=== PATIENT | male | born 1985 | race American Indian/Alaskan Native ===

== ENCOUNTER 2020-05-23 15:11 | Emergency (ER) | payer OTHER ==
[~2020-05-23] VITALS: Ht 185.4 cm; Wt 93.2 kg
--- NOTE | 2020-05-23 16:20 | REP ---
INDICATION: right testicular swelling s/p vasectomy. COMPARISON: None. TECHNIQUE: Real-time sonographic evaluation of scrotum and contents performed. FINDINGS: The testicles are all in size and echotexture, right testicle measuring 4.4 x 2.2 x 2.8 cm and left testicle 3.9 x 2.5 x 2.8 cm. A punctate calcification is seen in the upper right testicle. There is no testicular mass or torsion, blood flow is seen in each testicle with duplex Doppler evaluation. Two tiny cysts are seen in the head of the right epididymis measuring about 2 mm in diameter. There is a 2 mm cyst in the head of the left epididymis. No hydrocele is seen bilaterally. IMPRESSION: Essentially negative scrotal ultrasound as discussed above. <Electronically signed by Brian Melgar > 05/23/20 [id number]
[2020-05-23] MEDS ORDERED: NAPR-837 PO (16:58)
[2020-05-23 17:17] VITALS: BP 135/68
== END 2020-05-23 17:19 | disposition home or self-care (01) ==
LOC: M ED 15:11
DX: N50.3 Cyst of epididymis (principal); R10.30 Lower abdominal pain, unspecified; Z98.890 Other specified postprocedural states; Z98.52 Vasectomy status; F17.200 Nicotine dependence, unspecified, uncomplicated

== ENCOUNTER 2020-07-19 11:38 | Emergency (ER) | payer OTHER ==
[~2020-07-19] VITALS: Ht 182.9 cm; Wt 98.1 kg
[~2020-07-19 11:38] MED LIST: NAPR-837 PO
[2020-07-19] MEDS ORDERED: NS 1,000 ML IV SCH ×2 (11:55→12:35)
--- NOTE | 2020-07-19 12:11 | REP ---
INDICATION: trauma. COMPARISON: None. TECHNIQUE: Five views of the left ankle are provided. FINDINGS: Five views of the left ankle demonstrate posterior tibiotalar dislocation. There is a comminuted angulated and posteriorly displaced fracture of the distal fibula in the distal diaphyseal segment. There is no observable tibial fracture. No talar fracture is appreciated. The foot is dislocated somewhat laterally as well as posteriorly. IMPRESSION: Posterolateral ankle dislocation with comminuted angulated displaced distal fibular diaphyseal fracture. No tibial fracture is visible. <Electronically signed by Tiago Mcleod > 07/19/20 [id number]
[2020-07-19] MEDS: propofoL 200 MG/20 ML VIAL IV.PROC PRN ×5 (12:15→12:20)
--- NOTE | 2020-07-19 12:32 | REP ---
INDICATION: trauma. COMPARISON: None. TECHNIQUE: AP and oblique view centered at the left knee are provided. FINDINGS: AP and oblique views of the left knee demonstrate some clothing artifact. No fracture or subluxation is seen. The [id number] does not extend below midshaft tibia fibula. No proximal tibial or fibular fracture is seen.. . There is opaque debris in the clothing about the knee.. IMPRESSION: Two view centered at the knee show no fracture. Opaque debris and clothing artifact.. <Electronically signed by Tiago Mcleod > 07/19/20 [id number]
--- NOTE | 2020-07-19 12:58 | REP ---
INDICATION: post reduction. COMPARISON: Comparison is made with pre reduction left ankle radiographs.. TECHNIQUE: AP and lateral portably obtained radiographs of the left ankle are provided, taken through overlying cast material. FINDINGS: The ankle dislocation is reduced. Distal fibular comminuted fracture appears well aligned. Ankle mortise is slightly widened medially. IMPRESSION: Postreduction views. <Electronically signed by Tiago Mcleod > 07/19/20 [id number]
--- NOTE | 2020-07-19 12:59 | REP ---
INDICATION: post reduction. COMPARISON: None. TECHNIQUE: Five views of the left tibia and fibula. FINDINGS: Five views of the left calf demonstrate overlying cast material. There is a distal fibular diaphyseal fracture as described in the ankle radiographs now normally aligned. No tibial fracture is appreciated. Medial ankle mortise is somewhat widened.. . . IMPRESSION: Somewhat widened medial ankle mortise. Distal fibular fracture. No tibial fracture seen.. <Electronically signed by Tiago Mcleod > 07/19/20 [id number]
[2020-07-19] MEDS ORDERED: IBUP-1022 PO (14:16)
[2020-07-19 14:20] VITALS: BP 168/90
--- NOTE | 2020-07-19 14:39 | REP ---
INDICATION: request Dr. Banda. COMPARISON: Comparison is made with today's pre and postreduction radiographs. Patient is status post fracture dislocation of the ankle.. TECHNIQUE: Helical scanning is acquired and 2 mm axial images are generated. Coronal and sagittal MPR images are provided. The study is acquired through overlying cast material. FINDINGS: There is a comminuted fracture of the distal diaphysis of the fibula. The fracture is fairly well aligned. There are 2 or 3 air bubbles in the anterior soft tissues adjacent to the fibula suggesting the possibility that this is an open injury. There is no visible tibial fracture. There is medial widening of the ankle mortise. The tibiotalar articulation is otherwise normally aligned. No talar fracture is seen. There is an os trigonum. Subtalar joint is unremarkable. The other visualized tarsal bones are intact. There is no evidence of intra-articular bone fragment. IMPRESSION: Medial widening of the ankle mortise. Tibiotalar articulation is otherwise reduced. A comminuted distal fibular diaphyseal fracture is seen. There are 2 or 3 a a air bubbles adjacent to the distal fibular fracture anteriorly, question open injury versus local injection for pain block.. <Electronically signed by Tiago Mcleod > 07/19/20 [id number]
--- NOTE | 2020-07-20 15:18 | ER ---
ER CONSULTATION DATE: 07/19/2020 TIME: About 1:00 p.m. HISTORY OF PRESENT ILLNESS: This is a 35-year-old male. 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 This was an isolated fibula fracture with comminution and syndesmosis injury. The patient was stealing third base, made a slide into third base, caught his left ankle on the third base and sustained this closed ankle fracture. He presented to [facility] for further evaluation and treatment. The emergency room (ER) provider at the time performed a closed reduction and provisional splinting of the patient's left ankle. Orthopedic surgery was then consulted for further evaluation and treatment. Orthopedics removed the splint, examined the skin, performed a neurovascular examination, as described below and resplinted the patient's ankle and then well-padded the CRIILO splint. The patient underwent a CT scan. PAST MEDICAL HISTORY: Patient denies. PAST SURGICAL HISTORY: Patient denies. ALLERGIES: Patient denies. CURRENT MEDICATIONS: Patient denies. SOCIAL HISTORY: He is a social drinker, social smoker, not a heavy drug user. REVIEW OF SYSTEMS: A 14 point review of systems was negative unless as otherwise described in the history of present illness (HPI) above. PHYSICAL EXAMINATION: Patient is oriented to person, time and place. Equal rise and fall to chest bilaterally. Regular rate and rhythm. LEFT LOWER EXTREMITY: Patient had a very superficial skin abrasion over the anterior aspect of his left ankle. Otherwise, there were no deformities on presentation of the left ankle. There were no breaks in the skin other than the superficial abrasion on the anterior aspect of his left ankle. Patient had tenderness to palpation about the distal fibula. There is mild erythema. Patient otherwise was neurovascularly intact. He had 2+ dorsalis pedis and posterior tibial arterial pulse. Under 2 seconds capillary refill to the digits of his left foot. Motor strength 5/5 to the exterior hallucis longus (EHL), flexor hallucis longus (FHL), tibialis, anterior gastrocnemius and peroneal musculature. Sensation intact to light touch to the deep and superficial peroneal, sural, saphenous and tibial nerve distributions. IMAGING DATA: Radiographs demonstrated a comminuted distal fibula shaft fracture with a well-reduced talus within the mortis. The patient had a suspected syndesmotic injury. CT of L ankle confirmed the above findings. 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 PLAN: The patient was reduced and placed in a well-padded L&U splint. The patient was to go on soft tissue rest for the next 5-7 days and then undergo open reduction internal fixation of the fibula and likely syndesmotic fixation. The patient will return to sick call on Tuesday, July 21, 2020 and will require referral to orthopedics. He will then to be seen by orthopedics, either on July 21, 2020 or July 22, 2020 for his preoperative appointment and undergo surgical fixation likely either on July 25, 2020 or July 28, 2020, pending his soft tissue swelling. The patient was informed of the aforementioned findings. DARIEN
== END 2020-07-19 14:37 | disposition home or self-care (01) ==
LOC: M ED 11:38 → EDBD 11:38 → M ED 14:37
DX: S82.832A Other fracture of upper and lower end of left fibula, initial encounter for closed fracture (principal); X50.1XXA Overexertion from prolonged static or awkward postures, initial encounter; Y92.830 Public park as the place of occurrence of the external cause; Y93.64 Activity, baseball; Y99.8 Other external cause status; Z72.0 Tobacco use

== ENCOUNTER 2020-10-21 11:59 | Emergency (ER) | payer OTHER ==
[~2020-10-21] VITALS: Ht 185.4 cm; Wt 94.3 kg
[~2020-10-21 11:59] MED LIST changes: +IBUP-1022 PO
[2020-10-21 14:27] LABS: BASO # 0.1 10^3/uL (0.0-0.2); BASO % 0.6 % (0.0-1.0); EOS # 0.2 10^3/uL (0.0-0.5); EOS % 1.9 % (0.0-3.0); HEMATOCRIT 46.2 % (42.0-52.0); HEMOGLOBIN 15.5 g/dl (13.5-17.5); LYMPH # 2.6 10^3/uL (1.5-5.0); MEAN CORPUSCULAR HEMOGLOBIN 29.1 pg (27.0-33.0); MEAN CORPUSCULAR HGB CONC 33.5 g/dl (32.0-36.5); MEAN CORPUSCULAR VOLUME 86.8 fl (80.0-96.0); MONO # 0.6 10^3/uL (0.0-0.8); MONO % 7.5 % (2.0-8.0); NEUTROPHILS # 4.6 10^3/uL (1.5-8.5); NEUTROPHILS % 57.6 % (36.0-66.0); PLATELET COUNT, AUTOMATED 288 10^3/uL (150-450); RED BLOOD COUNT 5.32 10^6/uL (4.30-6.10)
[2020-10-21 14:51] LABS: ALBUMIN 3.9 GM/DL (3.2-5.2); ALT/SGPT 34 U/L (12-78); BILIRUBIN,DIRECT 0.1 MG/DL (0.0-0.2); BILIRUBIN,TOTAL 0.5 MG/DL (0.2-1.0); BLOOD UREA NITROGEN 12 MG/DL (7-18); CALCIUM LEVEL 9.9 MG/DL (8.5-10.1); CARBON DIOXIDE LEVEL 30 MEQ/L (21-32); CHLORIDE LEVEL 108 MEQ/L (98-107); CREATININE FOR GFR 0.98 MG/DL (0.70-1.30); GLOMERULAR FILTRATION RATE > 60.0 (>60); GLUCOSE, FASTING 92 MG/DL (70-100); LIPASE 136 U/L (73-393); POTASSIUM SERUM 4.7 MEQ/L (3.5-5.1); SODIUM LEVEL 140 MEQ/L (136-145); TOTAL PROTEIN 7.6 GM/DL (6.4-8.2)
[2020-10-21 16:28] VITALS: BP 110/66
== END 2020-10-21 16:42 | disposition home or self-care (01) ==
LOC: M ED 11:59
DX: R10.9 Unspecified abdominal pain (principal); R19.7 Diarrhea, unspecified; K21.9 Gastro-esophageal reflux disease without esophagitis; Z72.0 Tobacco use